=== PATIENT | male | born 1970 | race African-American/Black ===

== ENCOUNTER 2021-02-26 08:38 | Emergency (ER) | payer SELFPAY ==
[2021-02-26] MEDS ORDERED: Ondansetron PF 4 MG/2 ML Vial ONE (09:20)
[2021-02-26 09:46] LABS: #Monocytes 0.4 10x3/uL (0.0-1.1); %Basophils 0.9 % (0.0-2.0); %Eosinophils 0.4 % (0.0-6.0); %Lymphocytes 24.9 % (18.0-47.0); %Neutrophils 64.2 % (40.0-75.0); Hemoglobin 16.3 g/dL (13.5-17.5); Mean Corpuscular HGB CONC 34.2 g/dL (32.0-36.0); Mean Corpuscular Hemoglobin 28.6 pg (27.0-33.0); Mean Corpuscular Volume 83.7 fl (81.2-95.1); Mean Platelet Volume 9.6 fl (7.4-10.4); Platelet Count 453 10x3/uL (150-450); RBC Distribution Width 13.1 % (11.5-14.5); Red Blood Cell (RBC) Count 5.69 10x6/uL (4.32-5.72); White Blood Cell (WBC) Count 4.7 10x3/uL (3.5-10.5)
[2021-02-26 09:59] LABS: ALT (SGPT) 28 U/L (8-55); AST (SGOT) 22 U/L (5-34); Albumin 4.3 g/dL (3.5-5.0); Alkaline Phosphatase 132 U/L (40-110); Anion Gap 14 mmol/L (10-20); BUN (Urea Nitrogen) 9 mg/dL (8.9-20.6); Bilirubin, Total 0.9 mg/dL (0.2-1.2); Calc. Creatinine Clearance 0 mL/min (70-130); Calcium 9.8 mg/dL (7.8-10.44); Carbon Dioxide 25 mmol/L (22-29); Chloride 106 mmol/L (98-107); Globulin 3.8 g/dL (2.4-3.5); Glucose 133 mg/dL (70-105); Lipase 17 U/L (8-78); Potassium 3.2 mmol/L (3.5-5.1); Protein, Total 8.1 g/dL (6.0-8.3); Sodium 142 mmol/L (136-145)
[2021-02-26 10:49] LABS: Bilirubin Neg (Negative); Blood, Urine 10 (Negative); Clarity Clear (Clear); Glucose, Urine (Dipstick) Normal (Negative); Ketone, Urine Negative (Negative); Leukocyte Negative (Negative); Nitrite Negative (Negative); Protein, Urine (Dipstick) 100 mg/dl (Neg-Trace); Urobilinogen Normal mg/dL (Less than 2)
[2021-02-26 11:20] LABS: RBC/HPF 0-3 HPF (0-3); WBC/HPF 0-3 HPF (0-3)
[2021-02-26 11:23] LABS: Bacteria/HPF Rare-Few HPF (None Seen); Squamous Epithelial 0-3 HPF (0-3)
== END 2021-02-26 11:31 | disposition home or self-care (01) ==
LOC: CSHERS 08:38
DX: R11.2 Nausea with vomiting, unspecified (principal); I10 Essential (primary) hypertension; Z79.899 Other long term (current) drug therapy
CPT/HCPCS: 74177; 80053; 81003; 81015; 83690; 84484; 85025; 93005; 96374; J2405

== ENCOUNTER 2022-01-20 17:26 | Emergency (ER) | payer SELFPAY | END 2022-01-20 18:30 | disposition home or self-care (01) | LOC: CSHERS 17:26 | DX: S83.005A Unspecified dislocation of left patella, initial encounter (principal); I10 Essential (primary) hypertension; Z79.899 Other long term (current) drug therapy; W22.8XXA Striking against or struck by other objects, initial encounter ==

== ENCOUNTER 2023-02-10 10:10 | Inpatient (IN) | payer OTHER ==
[2023-02-10 10:58] LABS: #Basophils 0.1 10x3/uL (0.0-0.2); #Monocytes 0.4 10x3/uL (0.0-1.1); #Neutrophils 4.7 10x3/uL (1.5-8.4); %Basophils 0.7 % (0.0-2.0); %Eosinophils 0.3 % (0.0-6.0); %Monocytes 6.4 % (0.0-10.0); %Neutrophils 68.2 % (40.0-75.0); Hemoglobin 15.6 g/dL (13.5-17.5); Mean Corpuscular HGB CONC 35.3 g/dL (32.0-36.0); Mean Corpuscular Hemoglobin 28.8 pg (27.0-33.0); Mean Corpuscular Volume 81.5 fl (81.2-95.1); Mean Platelet Volume 10.1 fl (7.4-10.4); Platelet Count 469 10x3/uL (150-450); RBC Distribution Width 13.2 % (11.5-14.5); Red Blood Cell (RBC) Count 5.42 10x6/uL (4.32-5.72); White Blood Cell (WBC) Count 6.8 10x3/uL (3.5-10.5)
[2023-02-10 11:35] LABS: ALT (SGPT) 29 U/L (8-55); AST (SGOT) 30 U/L (5-34); Albumin 4.5 g/dL (3.5-5.0); Alkaline Phosphatase 83 U/L (40-110); Anion Gap 24 mmol/L (10-20); BUN (Urea Nitrogen) 24 mg/dL (8.9-20.6); Bilirubin, Total 0.9 mg/dL (0.2-1.2); Calc. Creatinine Clearance 0 mL/min (70-130); Calcium 10.1 mg/dL (7.8-10.44); Carbon Dioxide 20 mmol/L (22-29); Chloride 101 mmol/L (98-107); Estimated GFR 52; Globulin 3.9 g/dL (2.4-3.5); Glucose 144 mg/dL (70-105); Potassium 3.6 mmol/L (3.5-5.1); Protein, Total 8.4 g/dL (6.0-8.3); Sodium 141 mmol/L (136-145)
[2023-02-10 11:41] LABS: CKMB 2.5 ng/mL (0-6.6)
[2023-02-10] MEDS ORDERED: Aspirin 325 MG TAB ONE (12:11)
[2023-02-10] MEDS ORDERED: Ondansetron PF 4 MG/2 ML Vial IVP PRN (13:27)
[2023-02-10] MEDS ORDERED: Ondansetron ODT 4 MG TAB PO PRN (13:27)
[2023-02-10] MEDS ORDERED: Acetaminophen 325 MG TAB PO PRN (13:27)
[2023-02-10 14:58] LABS: Magnesium 1.9 mg/dL (1.6-2.6)
[2023-02-10 16:29] LABS: Hemoglobin A1c 5.5 % (4.0-6.0)
[2023-02-10 19:45] LABS: CKMB 2.1 ng/mL (0-6.6)
[2023-02-10] MEDS: NIFEdipine XL 60 MG TAB PO SCH (21:03)
[2023-02-10] MEDS: cloNIDine 0.1 MG TAB PO SCH (21:04)
[2023-02-10] MEDS: Sodium Chloride 0.9% 1,000 ML IV SCH (21:05)
[2023-02-11 04:47] LABS: Hemoglobin 14.9 g/dL (13.5-17.5); Mean Corpuscular HGB CONC 34.7 g/dL (32.0-36.0); Mean Corpuscular Hemoglobin 28.7 pg (27.0-33.0); Mean Corpuscular Volume 82.5 fl (81.2-95.1); Mean Platelet Volume 9.9 fl (7.4-10.4); Platelet Count 439 10x3/uL (150-450); RBC Distribution Width 13.5 % (11.5-14.5); White Blood Cell (WBC) Count 5.8 10x3/uL (3.5-10.5)
[2023-02-11 04:49] LABS: MDiff Complete? YES
[2023-02-11 05:00] LABS: Anion Gap 15 mmol/L (10-20); BUN (Urea Nitrogen) 22 mg/dL (8.9-20.6); Calc. Creatinine Clearance 0 mL/min (70-130); Carbon Dioxide 27 mmol/L (22-29); Chloride 102 mmol/L (98-107); Estimated GFR 64; Glucose 105 mg/dL (70-105); Sodium 141 mmol/L (136-145)
[2023-02-11 05:03] LABS: Potassium 2.5 mmol/L (3.5-5.1)
[2023-02-11 05:58] VITALS: BMI 37.7
[2023-02-11] MEDS: Potassium Chloride 20 MEQ TAB PO SCH ×2 (06:22→08:16)
[2023-02-11] MEDS: Sodium Chloride 0.9% 1,000 ML IV SCH ×2 (06:23→06:24)
[2023-02-11 06:40] LABS: Eosinophils 1 % (0-10); Lymphocytes 23 % (21-51); Monocytes 17 % (0-10); Neutrophil 58 % (42-75); Reactive Lymphocytes 1 % (0-10)
[2023-02-11 06:44] LABS: Diff Comment (RBC Morph SCRN) NORMAL; Hypersemented Neutrophil SLIGHT
[2023-02-11] MEDS ORDERED: Electrolyte Replacement Protocol 1 EACH FS SCH (07:15)
[2023-02-11] MEDS ORDERED: Magnesium 2 GM/50 ML(in water) 2 GM in Premix Bag 1 BAG IVPB SCH (08:00)
[2023-02-11] MEDS: NIFEdipine XL 60 MG TAB PO SCH ×2 (08:16→20:35)
[2023-02-11] MEDS: cloNIDine 0.1 MG TAB PO SCH ×2 (08:16→20:36)
[2023-02-11] MEDS ORDERED: Hydrochlorothiazide 25 MG TAB PO SCH (09:00)
[2023-02-11] MEDS ORDERED: Lisinopril 20 MG TAB PO SCH (09:00)
[2023-02-11 12:21] LABS: Potassium 3.4 mmol/L (3.5-5.1)
[2023-02-11] MEDS ORDERED: Potassium Chloride 20 MEQ TAB PO SCH (15:00)
[2023-02-11 16:54] LABS: Anion Gap 14 mmol/L (10-20); BUN (Urea Nitrogen) 25 mg/dL (8.9-20.6); Calc. Creatinine Clearance 76 mL/min (70-130); Calcium 8.7 mg/dL (7.8-10.44); Carbon Dioxide 26 mmol/L (22-29); Chloride 105 mmol/L (98-107); Estimated GFR 49; Glucose 92 mg/dL (70-105); Potassium 3.6 mmol/L (3.5-5.1); Sodium 141 mmol/L (136-145)
[2023-02-12 05:00] LABS: Anion Gap 12 mmol/L (10-20); BUN (Urea Nitrogen) 22 mg/dL (8.9-20.6); Calc. Creatinine Clearance 97 mL/min (70-130); Calcium 8.5 mg/dL (7.8-10.44); Carbon Dioxide 24 mmol/L (22-29); Chloride 106 mmol/L (98-107); Estimated GFR 65; Glucose 102 mg/dL (70-105); Magnesium 2.2 mg/dL (1.6-2.6); Potassium 3.3 mmol/L (3.5-5.1); Sodium 139 mmol/L (136-145)
[2023-02-12 05:01] LABS: Cardiac Risk 5.9 (Less than 4.5); Cholesterol 183 mg/dl (< 200 Desired); HDL Cholesterol 31 mg/dL (>60 Neg Risk); LDL Cholesterol, Calculated 132 mg/dL; Phosphorus 2.8 mg/dL (2.3-4.7); Triglycerides 102 mg/dL (Less than 150)
[2023-02-12] MEDS ORDERED: Potassium Chloride 20 MEQ TAB PO SCH (08:00)
[2023-02-12] MEDS: cloNIDine 0.1 MG TAB PO SCH (08:13)
[2023-02-12] MEDS: NIFEdipine XL 60 MG TAB PO SCH (08:13)
[2023-02-12] MEDS ORDERED: Aspirin 81 mg Enteric Coated Tablet PO SCH (09:00)
[2023-02-12] MEDS ORDERED: Amlodipine 5 MG TAB PO SCH (11:00)
[2023-02-12 15:48] VITALS: BP 146/85; TEMP 97.9
[2023-02-12] MEDS ORDERED: Atorvastatin Calcium 40 MG TAB PO SCH (21:00)
[2023-02-13] MEDS ORDERED: Amlodipine 5 MG TAB PO SCH (09:00)
== END 2023-02-12 16:02 | disposition home or self-care (01) | DRG 149 ==
LOC: CSHERS 10:10 → CSHTELE 17:27
PROVIDERS: ADMIT Internal Medicine; ATTEND Internal Medicine
DX: R42 Dizziness and giddiness (principal); N17.9 Acute kidney failure, unspecified; G89.29 Other chronic pain; M54.9 Dorsalgia, unspecified; I25.2 Old myocardial infarction; Z86.73 Personal history of transient ischemic attack (TIA), and cerebral infarction without residual deficits; R73.03 Prediabetes; E87.6 Hypokalemia; R00.2 Palpitations; N18.9 Chronic kidney disease, unspecified; I12.9 Hypertensive chronic kidney disease with stage 1 through stage 4 chronic kidney disease, or unspecified chronic kidney disease; R77.8 Other specified abnormalities of plasma proteins
CPT/HCPCS: 36415; 71045; 80048; 80053; 80061; 82553; 83036; 83735; 84100; 84484; 85025; 93005; 93306; 94760; J1650; J2405; J3475; J7050

== ENCOUNTER 2024-09-18 03:37 | Emergency (ER) | payer OTHER ==
[2024-09-18] MEDS ORDERED: Aspirin Chewable 81 MG TAB ONE (03:46)
[2024-09-18] MEDS ORDERED: Labetalol HCl 100 MG/20 ML VIAL ONE (03:46)
[2024-09-18 04:14] LABS: #Basophils 0.06 10x3/uL (0.0-0.2); #Eosinophils 0.01 10x3/uL (0.0-0.5); #Monocytes 0.87 10x3/uL (0.0-1.1); #Neutrophils 6.02 10x3/uL (1.5-8.4); %Basophils 0.7 % (0.0-2.0); %Eosinophils 0.1 % (0.0-6.0); %Monocytes 10.6 % (0.0-10.0); %Neutrophils 73.5 % (40.0-75.0); Hematocrit 43.4 % (38.8-50.0); Hemoglobin 15.4 g/dL (13.5-17.5); Mean Corpuscular HGB CONC 35.5 g/dL (32.0-36.0); Mean Corpuscular Hemoglobin 29.3 pg (27.0-33.0); Mean Corpuscular Volume 82.7 fL (81.2-95.1); Mean Platelet Volume 9.6 fL (7.4-10.4); Platelet Count 433 10x3/uL (150-450); RBC Distribution Width 13.3 % (11.5-14.5); Red Blood Cell (RBC) Count 5.25 10x6/uL (4.32-5.72); White Blood Cell (WBC) Count 8.2 10x3/uL (3.5-10.5)
[2024-09-18 04:21] LABS: ALT (SGPT) 26 U/L (8-55); AST (SGOT) 24 U/L (5-34); Albumin 3.6 g/dL (3.5-5.0); Alkaline Phosphatase 93 U/L (40-110); Anion Gap 16 mmol/L (10-20); BUN (Urea Nitrogen) 20 mg/dL (8.4-25.7); Bilirubin, Total 0.6 mg/dL (0.2-1.2); Calc. Creatinine Clearance 0 mL/min (70-130); Calcium 9.3 mg/dL (7.8-10.44); Carbon Dioxide 22 mmol/L (22-29); Chloride 105 mmol/L (98-107); Estimated GFR 67; Glucose 137 mg/dL (70-105); Protein, Total 7.6 g/dL (6.0-8.3); Sodium 140 mmol/L (136-145)
[2024-09-18 04:25] LABS: Troponin I 0.122 ng/mL (< 0.028)
[2024-09-18] MEDS ORDERED: Potassium Chloride 20 MEQ TAB ONE (04:26)
[2024-09-18] MEDS ORDERED: Ondansetron PF 4 MG/2 ML Vial ONE (06:36)
[2024-09-18 06:57] LABS: Troponin I 0.117 ng/mL (< 0.028)
[2024-09-18] MEDS ORDERED: Lorazepam 2 MG/ML VIAL ONE (10:17)
[2024-09-18] MEDS ORDERED: Enoxaparin 100 MG (1 mL) SYRINGE ONE (12:08)
[2024-09-18] MEDS ORDERED: Nitroglycerin 2% Ointment 1 INCH/1 GM Packet ONE (12:08)
[2024-09-18 12:15] LABS: Troponin I 0.083 ng/mL (< 0.028)
== END 2024-09-18 13:43 ==
LOC: CSHERS 03:37
DX: I16.1 Hypertensive emergency (principal); I21.4 Non-ST elevation (NSTEMI) myocardial infarction; I10 Essential (primary) hypertension; R73.03 Prediabetes; Z79.899 Other long term (current) drug therapy
CPT/HCPCS: 36415; 71045; 80053; 84484; 85025; 93005; 96372; 96374; 96375; 96376; J1650; J2060; J2405

== ENCOUNTER 2024-11-01 17:13 | Emergency (ER) | payer OTHER ==
[2024-11-01] MEDS ORDERED: Boostrix 0.5 ML (Tdap) VIAL (>/=7 yrs of age) ONE (19:45)
[2024-11-01] MEDS ORDERED: Lidocaine 1% (PF) 30 ML VIAL ONE (20:24)
[2024-11-01] MEDS ORDERED: Bacitracin 1 PK ONE (21:02)
== END 2024-11-01 20:55 | disposition home or self-care (01) ==
LOC: CSHERS 17:13
DX: S61.215A Laceration without foreign body of left ring finger without damage to nail, initial encounter (principal); I10 Essential (primary) hypertension; Z23 Encounter for immunization; W26.8XXA Contact with other sharp object(s), not elsewhere classified, initial encounter
CPT/HCPCS: 12001; 90471; 90715